=== PATIENT | female | born 2000 | race Asian ===

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

== ENCOUNTER 2020-01-18 19:29 | Emergency (ER) | payer OTHER ==
[~2020-01-18] VITALS: Ht 147.3 cm; Wt 41.7 kg
[2020-01-18 19:45] VITALS: Ht 147.3 cm; Wt 41.7 kg
[2020-01-18 20:50] LABS: UA SPECIFIC GRAVITY 1.015 (1.005-1.035); microscopic required? YES; urine erythrocyte TRACE (NEGATIVE)
[2020-01-18 21:59] VITALS: BP 103/75
== END 2020-01-18 21:45 | disposition home or self-care (01) ==
LOC: ED 19:29
PROVIDERS: Emergency Medicine
DX: G47.00 Insomnia, unspecified (principal)
CPT/HCPCS: 87804